=== PATIENT | female | born 1975 | race Caucasian/White ===

== ENCOUNTER → 2022-08-06 | Outpatient (CLI) | payer BC ==
--- NOTE | 2022-08-06 13:06 | XR ---
Exam: Abdomen one view Date: 08/06/2022 Comparison: None Clinical History: History of right-sided stone Technique: Single view of the abdomen was obtained per protocol. Findings: Gas and stool overlie the bilateral renal shadows, thus limiting evaluation. There is a dense calculu s centered about the right renal pelvis measuring 2.5 x 2.7 cm in maximum dimension. There are no obv ious calculi overlying the expected location of the left kidney, bilateral ureters, or urinary bladde r. There are multiple tiny calcifications within the lower pelvis, which likely relate to phleboliths . Gas and stool are scattered throughout the colon, including the distal sigmoid in a small to moderate stool burden. There are no dilated loops of bowel. There are no suspicious osseous abnormalities. Impression: Large calculus centered about the right renal pelvis.
== END | disposition home or self-care (01) ==
LOC: RADXRMAIN 12:40
PROVIDERS: ATTEND Urology
DX: N20.0 Calculus of kidney (principal)
CPT/HCPCS: 74018

== ENCOUNTER 2022-08-30 10:49 | Day surgery (SDC) | payer BC ==
[2022-08-26 10:21] VITALS: BMI 41.8
--- NOTE | 2022-08-26 19:12 | P.GSHP ---
History of Present Illness H&P Date: 08/26/22 46 yo female with a painful , large[2.5cm] right renal pelvic stone who comes for a right pcnl. the risks , compilications and alternatives have been discussed, - Constitutional Constitutional: Denies chills, Denies fever - EENT Eyes: denies blurred vision, denies pain Ears, nose, mouth and throat: Denies headache, Denies sore throat - Cardiovascular Cardiovascular: Denies chest pain, Denies shortness of breath - Respiratory Respiratory: Denies cough, Denies 7 - Gastrointestinal Gastrointestinal: Denies abdominal pain, Denies diarrhea, Denies nausea, Denies vomiting - Genitourinary (Female) Genitourinary: Denies dysuria, Denies hematuria - Genitourinary (Male) Genitourinary: Denies dysuria, Denies hematuria - Musculoskeletal Musculoskeletal: Denies myalgias - Integumentary Integumentary: Denies pruritus, Denies rash - Neurological Neurological: Denies numbness, Denies weakness - Psychiatric Psychiatric: Denies anxiety, Denies depression - Endocrine Endocrine: Denies fatigue, Denies weight change Past Medical History Past Medical History: Sleep Apnea/CPAP/BIPAP Additional Past Medical History / Comment(s): KIDNEY STONE. USES C-PAP History of Any Multi-Drug Resistant Organisms: None Reported Past Surgical History: Section, Hysterectomy, Orthopedic Surgery Additional Past Surgical History / Comment(s): RT HAND RECONSTRUCTION X 2. RT SHOULDER SX Past Anesthesia/Blood Transfusion Reactions: No Reported Reaction Smoking Status: Current every day smoker - Past Family History Mother Family Medical History: Cancer Medications and Allergies Home Medications Medication Instructions Recorded Confirmed Type Ketorolac [Toradol] 10 mg PO Q6HR PRN 08/26/22 08/26/22 History Allergies Allergy/AdvReac Type Severity Reaction Status Date / Time acetaminophen [From [place]] AdvReac Nausea & Verified 08/26/22 10:13 Vomiting Egg Derived AdvReac Nausea & Verified 08/26/22 10:13 Vomiting & Diarrhea hydrocodone [From [place]] AdvReac Nausea & Verified 08/26/22 10:13 Vomiting hydromorphone [From Dilaudid] AdvReac IV MADE Verified 08/26/22 10:13 VEINS FEEL LIKE THEY WERE ON FIRE latex AdvReac CAUSES Verified 08/26/22 10:13 SORES TO FORM Penicillins AdvReac Itching Verified 08/26/22 10:13 Surgical - Exam - General well developed, well nourished, no distress - Eyes normal ocular movement, no icteric - ENT no hearing loss, no congestion - Neck no masses, trachea midline - Respiratory normal respiratory effort, clear to auscultation - Abdomen Abdomen: soft, non tender, no guarding, no rigid, no rebound - Integumentary no rash, no abnormal pigmentation - Neurologic no disoriented, no combative - Psychiatric oriented to time, oriented to person, oriented to place, speech is normal, memory intact Results - Imaging CT scan - abdomen: image reviewed CT scan - pelvis: report reviewed, image reviewed Assessment and Plan Assessment: Impression: Right renal pelvic stone, large. Plan: right PCNL
[~2022-08-30 10:49] MED LIST: ceFAZolin 3 GM in SODIUM CHLORIDE 0.9% 100 ML IVPB PRN
--- NOTE | 2022-08-30 11:21 | XR ---
EXAMINATION TYPE: XR KUB DATE OF EXAM: 08/30/2022 COMPARISON: 08/06/2022 INDICATION: Preop right renal calculus TECHNIQUE: Single view abdomen FINDINGS: There is a normal bowel gas pattern. Psoas margins are normal. No organomegaly is present. Right renal calculus is again evident. Current estimated measurements of 3.0 x 2.5 cm. IMPRESSION: 1. Unremarkable Abdomen
[2022-08-30] MEDS ORDERED: LACTATED RINGERS 1,000 ML IV ONE ×2 (11:35→15:18)
[2022-08-30] MEDS ORDERED: ONDANSETRON 4 MG/2 ML VIAL ONE (11:38)
[2022-08-30] MEDS ORDERED: ONDANSETRON 4 MG/2 ML VIAL IVP ONE (11:45)
[2022-08-30] MEDS ORDERED: DEXAMETHASONE SOD PHOSPHATE 4 MG/ML 1 ML VIAL IVP ONE (11:45)
[2022-08-30] MEDS ORDERED: KETOROLAC 15 MG/ML 1 ML VIAL ONE (12:07)
[2022-08-30] MEDS ORDERED: KETAMINE 10 MG/ML 20 ML VIAL ONE (12:07)
[2022-08-30] MEDS ORDERED: GLYCOPYRROLATE 0.2 MG/ML 2 ML VIAL ONE (12:07)
[2022-08-30] MEDS ORDERED: PROPOFOL 10 MG/ML 20 ML VIAL IV ONE (12:07)
[2022-08-30] MEDS ORDERED: fentaNYL (PF) 50 MCG/ML 2 ML AMP ONE (12:07)
[2022-08-30] MEDS ORDERED: NEOSTIGMINE 1 MG/ML 10 ML VIAL ONE (12:07)
[2022-08-30] MEDS ORDERED: LIDOCAINE 2% INJ 20 MG/ML (2 ML VIAL) ONE (12:07)
[2022-08-30] MEDS ORDERED: SUCCINYLCHOLINE CHLORIDE 200 MG/10 ML VIAL IV ONE (12:07)
[2022-08-30] MEDS ORDERED: MIDAZOLAM 2 MG/2 ML VIAL ONE (12:07)
[2022-08-30] MEDS ORDERED: ROCURONIUM 10 MG/ML (5 ML VIAL) IV ONE (12:07)
[2022-08-30] MEDS ORDERED: IOHEXOL 350 MG/ML 100 ML in EMPTY BAG 1 BAG IRRIGATION ONE (12:44)
[2022-08-30] MEDS ORDERED: MAG HYDROX/AL HYDROX/SIMETH 30 ML CUP PO PRN (13:47)
[2022-08-30] MEDS ORDERED: ACETAMINOPHEN TAB 325 MG TAB PO PRN (13:47)
[2022-08-30] MEDS ORDERED: ONDANSETRON 4 MG/2 ML VIAL IVP PRN (13:47)
[2022-08-30] MEDS ORDERED: HYDROmorphone PCA 10 MG/50 ML BAG IV PRN (13:49)
[2022-08-30] MEDS ORDERED: NALOXONE 0.4 MG/ML 1 ML VIAL IV PRN (13:49)
--- NOTE | 2022-08-30 13:54 | P.OP ---
Date of Procedure: 08/30/22 Preoperative Diagnosis: Right renal stone, large (greater than 3 cm) Postoperative Diagnosis: Same Procedure(s) Performed: Cystoscopy with placement of occluding balloon catheter right, percutaneous nephrostomy (Dr. magallanes), percutaneous nephrostolithotomy with ultrasound, placement of 10 J right nephrostomy tube Anesthesia: COLE Surgeon: Moshe Hanson Estimated Blood Loss (ml): 200 Pathology: other (Stone) Condition: stable Disposition: PACU Indications for Procedure: Patient is 46. SHe has a very large (greater than 3 cm) right renal pelvic stone. Causing pain. She comes for percutaneous nephrostolithotomy Description of Procedure: Patient brought to the operating suite. Given a general anesthetic on the transport gurney. She's placed in a frog position with a sterile prep and drape. Cystoscopy of the Foroblique lens and 22-Irish sheath identifies a normal urethra. The right hemitrigone was seen and a 5-Irish occluding balloon catheters passed up through the right ureteral orifice up and in the right renal pelvis. The cystoscope was removed. It is secured to a 16-Irish Mccall, latex free The patient is placed in a prone position with care to her airways and extremities. Dr. Magallanes of radiology performed percutaneous access to the right lower pole calyx. I dilate the tract to 30-Irish. I introduced the rigid scope through the working sheath into the kidney. The stone was identified. With ultrasound the stone was broken and suctioned out with the ultrasound or larger fragments are grasped with the grasping forceps. After removing all of the visible large stone I passed the scope into the UPJ and see some more fragments which are removed. I then pass a flexible scope throughout the collecting system basketing smaller stones. I do an intraoperative nephrostogram and see no remaining stone or obstruction. I looked down the ureter the flexible scope there is no stone A 10 J nephrostomy tube was placed over the working wire into the right kidney. Its position is confirmed fluoroscopically. It is secured to the skin with 2-0 silk. The patient is awake and returned recovery room good condition. Blood loss is approximately 200 mL. The patient tolerated the procedure well and is returned recovery room good condition.
--- NOTE | 2022-08-30 13:59 | FL ---
EXAMINATION TYPE: FL Perc Nephrostomy New Access DATE OF EXAM: 08/30/2022 COMPARISON: X-ray 08/30/2022 HISTORY: Right renal calculus for nephrolithotomy Procedure had been discussed with the patient by Dr. Hanson, risks, benefits, alternatives, were dis cussed and any questions were answered. Informed consent was obtained. The patient was in a semipro ne position prepped and draped on the OR table in the usual sterile fashion. Utilizing a 15 cm lengt h Chiba needle a single pass was made into a lower pole posterior calyx under fluoroscopic guidance. An 0.018 guidewire is passed through the needle and there was placement of a 6-Bengali catheter sheat h system. There was conversion to a 0.035 system was performed with passage of a guidewire into the ureter utilizing a directional catheter. A second safety wire was placed. Remaining portion of pro cedure performed by . Approximately dap 50.885 Gycm2 of fluoroscopy was provided. IMPRESSION: 1. Successful intraoperative right nephrostomy prior to nephrolithotomy.
[2022-08-30] MEDS ORDERED: MEPERIDINE 50 MG/ML SYRINGE IVP ONE ×2 (14:12→14:25)
[2022-08-30] MEDS ORDERED: fentaNYL (PF) 50 MCG/ML 2 ML AMP IVP ONE ×3 (14:40→15:01)
[2022-08-30] MEDS: KETOROLAC 15 MG/ML 1 ML VIAL IVP PRN (17:23)
[2022-08-30] MEDS: traMADol 50 MG TAB PO PRN (17:25)
[2022-08-31] MEDS: KETOROLAC 15 MG/ML 1 ML VIAL IVP PRN (00:01)
[2022-08-31] MEDS: DEXTROSE 5%-0.45% NACL 1,000 ML IV SCH ×2 (00:02→01:42)
[2022-08-31] MEDS: traMADol 50 MG TAB PO PRN ×2 (06:11→17:04)
[2022-08-31 07:29] VITALS: RESP 16
--- NOTE | 2022-08-31 09:41 | P.PN ---
Subjective Progress Note Date: 08/31/22 Principal diagnosis: POD #1, s/p right percutaneous nephrolithotomy (PCNL) The patient underwent an uncomplicated right PCNL yesterday. This morning, she reports fatigue and mild flank discomfort. Objective - Vital Signs Vital signs: Vital Signs Temp 99.4 F 08/31/22 06:30 Pulse 70 08/31/22 06:30 Resp 16 08/31/22 06:30 BP 118/73 08/31/22 06:30 Pulse Ox 93 L 08/31/22 06:30 FiO2 Intake & Output 08/30/22 08/31/22 08/31/22 18:59 06:59 18:59 Intake Total 1201 600 Output Total 500 740 Balance 701 -140 Weight 130.9 kg Intake: IV 1201 Oral 600 Output: Drainage 290 Right Back 290 Urine 300 450 Uretheral (Mccall) 350 Estimated Blood Loss 200 Other: Voiding Method Indwelling Catheter # Voids 0 - Constitutional General appearance: Present: average body habitus, no acute distress - Gastrointestinal Gastrointestinal Comment(s): Soft, non-distended, non-tender. The right nephrostomy tube is intact. It is draining blood-tinged urine without clots. The dressing is clean and dry. The Mccall catheter is draining clear yellow urine. - Psychiatric Psychiatric: Present: A&O x's 3, appropriate affect Assessment and Plan Assessment: Stable POD #1 (1) Renal calculus, right Current Visit: Yes Status: Acute Code(s): N20.0 - CALCULUS OF KIDNEY SNOMED Code(s): 34181259 Plan: D/C Mccall catheter, ambulate. I am hopeful that the patient may be discharged home with the nephrostomy tube later today.
[2022-08-31 13:33] VITALS: BP 118/74; PULSE 89; TEMP 98.5
--- NOTE | 2022-08-31 18:14 | P.DS ---
Providers Expected date of discharge: 08/31/22 Attending physician: Moshe Hanson Primary care physician: Moshe Cleaning - Discharge Diagnosis(es) (1) Renal calculus, right Current Visit: Yes Status: Acute Hospital Course: On the day of admission, the patient underwent an uncomplicated right percutaneous nephrolithotomy (PCNL) to remove a 2.5 x 3.0 cm right renal calculus. The perioperative course was unremarkable. The Mccall catheter was removed on the first postoperative day. That morning, she reported fatigue and mild discomfort. As the day progressed, she ambulated and voided without difficulty. At that time, she felt well enough to be discharged home. Procedures: Right PCNL on 08/30/2022. Patient Condition at Discharge: Good Plan - Discharge Summary Discharge Rx Participant: Yes New Discharge Prescriptions: No Action traMADol HCL 50 mg PO Q6HR PRN PRN Reason: Pain Discharge Medication List traMADol HCL 50 mg PO Q6HR PRN 08/30/22 [History] Follow up Appointment(s)/Referral(s): Moshe Hanson MD [STAFF PHYSICIAN] - 09/03/22 Activity/Diet/Wound Care/Special Instructions: Discharge home with right nephrostomy tube. Teach patient to drain nephrostomy tube bag. Drink plenty of fluids. Diet as tolerated. No strenuous activity. Discharge Disposition: HOME SELF-CARE
== END 2022-08-31 18:51 | disposition home or self-care (01) ==
LOC: OR 10:49 → 4SSUR 14:02 → OR 08-31 18:51
PROVIDERS: ATTEND Urology
DX: N20.0 Calculus of kidney (principal); G47.30 Sleep apnea, unspecified; F17.200 Nicotine dependence, unspecified, uncomplicated; Z88.5 Allergy status to narcotic agent; Z90.710 Acquired absence of both cervix and uterus; Z98.890 Other specified postprocedural states; Z79.899 Other long term (current) drug therapy
CPT/HCPCS: 50081; 86900; 86901; 86850; 82365; 50432; 74018; C2628; C1769 ×2; C1894; C1729; J1100; J2175; J0690; J2405; J3010; J1885 ×2; Q9967